=== PATIENT | female | born 1955 | race Caucasian/White ===

== ENCOUNTER 2021-01-09 09:46 | Outpatient (CLI) | payer MEDICARE | END 2021-01-09 09:47 | disposition home or self-care (01) | LOC: BICULT 09:46 | PROVIDERS: ATTEND Nurse Practitioner Family | DX: Z13.820 Encounter for screening for osteoporosis (principal); T85.43XA Leakage of breast prosthesis and implant, initial encounter; M81.0 Age-related osteoporosis without current pathological fracture; M85.852 Other specified disorders of bone density and structure, left thigh; Z85.3 Personal history of malignant neoplasm of breast | CPT/HCPCS: 76999; 77080 ==

== ENCOUNTER 2021-08-13 04:44 | Inpatient (IN) | payer MEDICARE ==
[2021-08-13] MEDS ORDERED: Ondansetron PF 4 MG/2 ML Vial ONE (06:16)
[2021-08-13] MEDS ORDERED: Morphine 4 MG/ML VIAL ONE (06:16)
[2021-08-13] MEDS ORDERED: Morphine 4 MG/ML VIAL SLOW IVP PRN ×2 (06:38→17:48)
[2021-08-13] MEDS ORDERED: Sodium Chloride 0.9% 1,000 ML IV SCH (06:45)
[2021-08-13] MEDS ORDERED: Ondansetron ODT 4 MG TAB SL PRN (06:45)
[2021-08-13] MEDS ORDERED: Ondansetron PF 4 MG/2 ML Vial IVP PRN ×2 (06:45→11:52)
[2021-08-13 08:18] VITALS: BMI 30.3
[2021-08-13] MEDS ORDERED: Pantoprazole 40 MG VIAL IVP SCH (09:00)
[2021-08-13] MEDS ORDERED: MD-Gastroview 120 ML BOT ONE (10:51)
[2021-08-13] MEDS ORDERED: hydrALAZINE 20 MG/ML VIAL SLOW IVP PRN (11:52)
[2021-08-13] MEDS ORDERED: Ondansetron ODT 4 MG TAB PO PRN (11:52)
[2021-08-13] MEDS ORDERED: D5 1/2 NS w/20 mEq KCL 1,000 ML IV SCH (12:00)
[2021-08-13] MEDS ORDERED: Ketorolac Tromethamine 30 MG/ML VIAL IVP PRN (17:50)
[2021-08-13] MEDS ORDERED: Ketorolac Tromethamine 30 MG/ML VIAL IVP SCH (18:00)
[2021-08-13] MEDS: Sodium Chloride 0.45% 1,000 ML IV SCH (18:09)
[2021-08-13] MEDS: Enoxaparin Sodium 40 MG/0.4 ML SYRINGE SC SCH (21:06)
[2021-08-14] MEDS: Morphine 4 MG/ML VIAL SLOW IVP PRN ×3 (01:32→20:27)
[2021-08-14] MEDS: Sodium Chloride 0.45% 1,000 ML IV SCH ×2 (01:32→13:06)
[2021-08-14] MEDS ORDERED: Pantoprazole 40 MG VIAL IVP SCH ×2 (09:00)
[2021-08-14 09:18] LABS: #Basophils 0.1 thou/uL (0.0-0.2); #Eosinphils 0.9 thou/uL (0.0-0.7); #Lymphocytes 2.7 thou/uL (1.20-3.40); %Basophils 1.3 % (0.0-1.0); %Lymphocytes 27.6 % (21.0-51.0); %Monocytes 10.3 % (0.0-10.0); %Neutrophils 51.9 % (42.0-75.0); Hemoglobin 10.9 g/dL (12.0-16.0); Mean Corpuscular HGB CONC 30.9 g/dL (32.0-36.0); Mean Corpuscular Hemoglobin 26.9 pg (27.0-31.0); Mean Corpuscular Volume 87.1 fL (78.0-98.0); Mean Platelet Volume 8.8 fL (7.4-10.4); Platelet Count 258 thou/uL (130-400); RBC Distribution Width 14.3 % (11.5-14.5); Red Blood Cell (RBC) Count 4.04 mill/uL (4.20-5.40); White Blood Cell (WBC) Count 9.6 thou/uL (4.8-10.8)
[2021-08-14 09:40] LABS: Anion Gap 15 mmol/L (10-20); BUN (Urea Nitrogen) 10 mg/dL (9.8-20.1); Calc. Creatinine Clearance 90 mL/min (70-130); Calcium 8.8 mg/dL (7.8-10.44); Carbon Dioxide 22 mmol/L (23-31); Chloride 108 mmol/L (98-107); Glucose 73 mg/dL (80-115); Sodium 141 mmol/L (136-145)
[2021-08-14] MEDS ORDERED: Scopolamine 1.5 mg/72 hour Patch TD SCH (17:45)
[2021-08-14] MEDS: Enoxaparin Sodium 40 MG/0.4 ML SYRINGE SC SCH (21:00)
[2021-08-15] MEDS ORDERED: Sodium Chloride 0.9% 1,000 ML IV SCH (08:00)
[2021-08-15] MEDS ORDERED: Bupivacaine 0.25% HCL 30 ML VIAL ONE ×2 (08:33→09:39)
[2021-08-15] MEDS ORDERED: Lidocaine 1% w/Epinephrine 1:100K 20 ML VIAL ONE ×2 (08:33→09:39)
[2021-08-15] MEDS ORDERED: Ketorolac Tromethamine 30 MG/ML VIAL IVP ONE (09:00)
[2021-08-15] MEDS ORDERED: Levofloxacin 500 mg/D5W 100 ml Premix Bag ONE (09:05)
[2021-08-15] MEDS ORDERED: Lidocaine 2% Jelly 5 ML TUBE ONE (09:45)
[2021-08-15] MEDS ORDERED: Midazolam HCl 2 mg/2 ml Vial ONE (09:45)
[2021-08-15] MEDS ORDERED: Fentanyl 100 MCG/2 ML VIAL ONE ×2 (09:45→11:47)
[2021-08-15] MEDS ORDERED: Bupivacaine PF 0.5% 30 ML VIAL ONE (09:50)
[2021-08-15] MEDS ORDERED: Ibuprofen 600 MG TAB PO PRN (09:55)
[2021-08-15] MEDS ORDERED: Acetaminophen 500 MG TAB PO PRN (09:55)
[2021-08-15] MEDS ORDERED: PROPOFOL 200 MG/20 ML VIAL ONE (10:11)
[2021-08-15] MEDS ORDERED: Succinylcholine 200 MG/10 ml SYRINGE FS ONE (10:11)
[2021-08-15] MEDS ORDERED: Dexamethasone 20 MG/5 ML VIAL ONE (10:11)
[2021-08-15] MEDS ORDERED: Ondansetron PF 4 MG/2 ML Vial ONE (10:11)
[2021-08-15] MEDS ORDERED: Glycopyrrolate 0.2 MG/ML 5 ML SYRINGE ONE (10:11)
[2021-08-15] MEDS ORDERED: Lidocaine 1% PF 5 ML VIAL ONE (10:11)
[2021-08-15] MEDS ORDERED: Promethazine HCl 25 MG/ML VIAL IVPB PRN (10:52)
[2021-08-15] MEDS ORDERED: Meperidine HCl/PF 25 MG/ML VIAL SLOW IVP PRN (10:52)
[2021-08-15] MEDS ORDERED: HYDROmorphone 2 MG/ML VIAL SLOW IVP PRN (10:52)
[2021-08-15] MEDS ORDERED: Promethazine HCl 25 MG/ML VIAL IM PRN (10:52)
[2021-08-15] MEDS ORDERED: Ondansetron HCl/PF 4 MG/2 ML Vial IVP PRN (10:52)
[2021-08-15 14:02] VITALS: BP 132/61; TEMP 97.8
== END 2021-08-15 14:05 | disposition home or self-care (01) | DRG 418 ==
LOC: ERS 04:44 → T4-B 05:06
PROVIDERS: ADMIT Specialist; ATTEND Specialist
PROC: 0D9670Z Drainage of Stomach with Drainage Device, Via Natural or Artificial Opening (ICD-10-PCS; 2021-08-13)
PROC: 0FT44ZZ Resection of Gallbladder, Percutaneous Endoscopic Approach (ICD-10-PCS; principal; 2021-08-15)
DX: K82.8 Other specified diseases of gallbladder (principal); K44.0 Diaphragmatic hernia with obstruction, without gangrene; T85.528A Displacement of other gastrointestinal prosthetic devices, implants and grafts, initial encounter; K21.9 Gastro-esophageal reflux disease without esophagitis; K22.70 Barrett's esophagus without dysplasia; Y84.9 Medical procedure, unspecified as the cause of abnormal reaction of the patient, or of later complication, without mention of misadventure at the time of the procedure; Z90.710 Acquired absence of both cervix and uterus; Z90.13 Acquired absence of bilateral breasts and nipples; Z88.2 Allergy status to sulfonamides; Z88.8 Allergy status to other drugs, medicaments and biological substances
CPT/HCPCS: 36415; 71045; 74019; 74250; 76705; 78227; 80048; 85025; 88304; 96374; A9537; C9113; J1100; J1650; J1885; J1956; J2250; J2270; J2405; J2704; J3010; J3480; J7050; Q0162; Q9963; S0020